=== PATIENT | male | born 1935 | race Caucasian/White ===

== ENCOUNTER 2017-10-29 10:58 | Inpatient (IN) | payer MEDICARE ==
[~2017-10-29] VITALS: Ht 177.8 cm; Wt 77.7 kg
[~2017-10-29 10:58] MED LIST: ASPI-1012 PO; CHOL100040 PO; CYAN10009 PO; FISH1CAP63 PO; GLUC-172 PO; KRIL1CAP19 PO; MULT-1192 PO; SAW450CA7 PO; TERA5 PO; UBID100C10 PO; VIT1CAPS21 PO
[2017-10-29] MEDS ORDERED: ONDANSETRON HCL 4 MG/2 ML VIAL ONE (11:33)
[2017-10-29] MEDS ORDERED: SODIUM CHLORIDE 0.9% 500ML 500 ML IV ONE (11:34)
[2017-10-29 11:41] LABS: BASOPHILS % (AUTO) 0.1 % (0.0-5.0); EOSINOPHILS % (AUTO) 0.3 % (0.0-8.0); HEMATOCRIT 35.5 % (42-54); MEAN CORPUSCULAR HEMOGLOBIN 32.4 pg (27.0-33.0); MEAN CORPUSCULAR HGB CONC 33.7 g/dL (32.0-36.0); MEAN CORPUSCULAR VOLUME 96.2 fL (79-99); MONOCYTES % (AUTO) 2.2 % (3.0-13.0); NEUTROPHILS % (AUTO) 90.1 % (40.0-77.0); PLATELET COUNT (AUTO) 128 K/uL (130-400); RED BLOOD CELL COUNT(AUTO) 3.69 MIL/uL (4.50-6.20); RED CELL DISTRIBUTION WIDTH 13.7 % (11.0-15.5)
[2017-10-29 11:49] LABS: CARBON DIOXIDE 30 mmol/L (21-32); CHLORIDE 104 mmol/L (101-111); CREATININE 1.6 mg/dL (0.5-1.5); GLOMERULAR FILTR. RATE CALC 44 mL/min (>60); GLUCOSE,RANDOM 188 mg/dL (70-105); POTASSIUM 5.1 mmol/L (3.5-5.1); SODIUM SERUM 142 mmol/L (136-145); UREA NITROGEN, BLOOD 55 mg/dL (7-18)
[2017-10-29 11:52] LABS: INR 1.07 (0.85-1.15); PROTHROMBIN TIME 11.2 SEC (9.6-11.6)
[2017-10-29] MEDS ORDERED: DILTIAZEM 125MG+100 ML NS 125 ML IV SCH (12:00)
[2017-10-29 12:03] LABS: ALANINE AMINOTRANSFERASE 24 U/L (12-78); ALBUMIN 3.1 g/dL (3.5-5.0); ASPARTATE AMINOTRANSFERASE 21 U/L (10-37); BILIRUBIN,TOTAL 0.8 mg/dL (0.2-1.0); CREATINE KINASE MB < 0.5 ng/mL (0.5-3.6); CREATINE KINASE, TOTAL 25 U/L (21-232); MYOGLOBIN 42 ng/mL (10-92); TOTAL PROTEIN, SERUM 5.9 g/dL (6.0-8.3)
[2017-10-29 12:13] LABS: B-TYPE NATRIURETIC PEPTIDE 142 pg/mL (0-100)
[2017-10-29] MEDS ORDERED: SODIUM CHLORIDE 0.9% 100 ML IV ONE (12:14)
[2017-10-29] MEDS ORDERED: DILTIAZEM HCL 125 MG/25 ML VIAL IV ONE (12:14)
[2017-10-29 12:18] LABS: LYMPHOCYTES % (AUTO) 7.3 % (21.0-51.0)
[2017-10-29 17:15] VITALS: BP 109/50
[2017-10-29] MEDS ORDERED: DILTIAZEM 125 MG IV SCH (18:00)
[2017-10-29] MEDS ORDERED: NS IV SCH (18:00)
[2017-10-29 20:32] VITALS: BP 120/66
[2017-10-30] VITALS: BP 135/73
[2017-10-30 04:19] VITALS: BP 135/77
[2017-10-30 07:46] VITALS: BP 140/68
[2017-10-30 11:19] VITALS: BP 137/73
[2018-03-08] MEDS ORDERED: TERA5CAP4 PO (14:48)
[2018-03-08] MEDS ORDERED: ASPI-1026 PO (14:48)
== END 2017-10-30 13:35 | disposition home or self-care (01) | DRG 310 ==
LOC: EDH 10:58 → EDHIP 12:25 → 2AH 16:39
PROVIDERS: ADMIT Family Medicine; ATTEND Family Medicine
DX: I48.2 Chronic atrial fibrillation (principal); I10 Essential (primary) hypertension; I25.10 Atherosclerotic heart disease of native coronary artery without angina pectoris; N40.0 Benign prostatic hyperplasia without lower urinary tract symptoms
CPT/HCPCS: 36415; 71045; 80053; 82550; 82553; 82948; 83874; 83880; 84484; 85025; 85610; 85730; 87040; 87804; 93005; 99291; J2405; J3490; J7040

== ENCOUNTER 2018-03-10 06:18 | Day surgery (SDC) | payer MEDICARE ==
[2018-03-08 14:43] VITALS: BP 157/65
[2018-03-08 14:47] LABS: BASOPHILS % (AUTO) 0.5 % (0.0-5.0); EOSINOPHILS % (AUTO) 2.6 % (0.0-8.0); HEMATOCRIT 39.1 % (42-54); LYMPHOCYTES % (AUTO) 18.9 % (21.0-51.0); MEAN CORPUSCULAR VOLUME 94.2 fL (79-99); MONOCYTES % (AUTO) 9.7 % (3.0-13.0); NEUTROPHILS % (AUTO) 68.3 % (40.0-77.0); PLATELET COUNT (AUTO) 97 K/uL (130-400); RED BLOOD CELL COUNT(AUTO) 4.15 MIL/uL (4.50-6.20); RED CELL DISTRIBUTION WIDTH 15.8 % (11.0-15.5); WHITE BLOOD COUNT (AUTO) 5.5 K/uL (4.8-10.8)
[2018-03-08 14:53] LABS: CREATININE 1.6 mg/dL (0.5-1.5); POTASSIUM 4.1 mmol/L (3.5-5.1)
[2018-03-08 14:55] LABS: APPEARANCE,URINE Clear (CLEAR); BILIRUBIN,URINE Negative (NEGATIVE); COLOR,URINE Yellow (YELLOW); GLUCOSE, URINE (UA) TRACE mg/dL (NEGATIVE); KETONES,URINE Negative (NEGATIVE); LEUKOCYTE ESTERASE ,URINE Negative (NEGATIVE); NITRATE,URINE Negative (NEGATIVE); OCCULT BLOOD,URINE Large (NEGATIVE); PROTEIN,URINE POS 1+ (NEGATIVE); UROBILINOGEN,URINE 0.2 mg/dL (0.2-1.0)
[2018-03-08 14:55] LABS: INR 0.98 (0.85-1.15); PROTHROMBIN TIME 10.3 SEC (9.6-11.6)
[2018-03-08 15:19] LABS: BACTERIA,URINE Rare /HPF (None Seen); WBC,URINE 0-1 /HPF (0-1)
[2018-03-08 15:20] LABS: MUCUS,URINE Few LPF (None Seen); RBC,URINE 26-50 /HPF (0-1)
[~2018-03-10] VITALS: Ht 177.8 cm; Wt 76.3 kg
[2018-03-10] VITALS (15 sets, daily range): BP systolic 128–156; BP diastolic 61–95
[~2018-03-10 06:18] MED LIST changes: -ASPI-1012 PO; +ASPI-1026 PO; -CHOL100040 PO; -CYAN10009 PO; -FISH1CAP63 PO; -GLUC-172 PO; -KRIL1CAP19 PO; -MULT-1192 PO; -SAW450CA7 PO; -TERA5 PO; +TERA5CAP4 PO; -UBID100C10 PO; -VIT1CAPS21 PO
[2018-03-10] MEDS ORDERED: LACTATED RINGERS 1000ML 1,000 ML IV ONE (07:35)
[2018-03-10] MEDS ORDERED: GLYCOPYRROLATE 0.2 MG/ML 5 ML VIAL ONE (07:51)
[2018-03-10] MEDS ORDERED: MIDAZOLAM HCL 1 MG/ML 2ML VIAL ONE (07:51)
[2018-03-10] MEDS ORDERED: PROPOFOL 10 MG/ML 20ML VIAL IV ONE (07:51)
[2018-03-10] MEDS ORDERED: DEXAMETHASONE SOD PHOSPHATE 10MG/ML 1ML VIAL ONE (07:51)
[2018-03-10] MEDS ORDERED: ONDANSETRON HCL 4 MG/2 ML VIAL ONE (07:51)
[2018-03-10] MEDS ORDERED: NEOSTIGMINE 5MG/5ML SYR IV ONE ×2 (07:51→09:31)
[2018-03-10] MEDS ORDERED: LIDOCAINE PF 2% 5ML ABBOJECT ONE (07:51)
[2018-03-10] MEDS ORDERED: FENTANYL CITRATE PF 50 MCG/1 ML 2ML VIAL ONE (07:52)
[2018-03-10] MEDS ORDERED: GENTAMICIN 80 MG/NS 100 ML PB 100 ML IV ONE (08:00)
[2018-03-10] MEDS ORDERED: CEFAZOLIN SODIUM 1 GM VIAL IVP ONE (08:00)
[2018-03-10] MEDS ORDERED: GENTAMICIN 80 MG/NS 100 ML PB 100 ML IV SCH (08:00)
== END 2018-03-10 11:43 | disposition home or self-care (01) ==
LOC: DAH 06:18
PROVIDERS: ATTEND Urology
DX: N20.0 Calculus of kidney (principal); I10 Essential (primary) hypertension; I48.91 Unspecified atrial fibrillation; K21.9 Gastro-esophageal reflux disease without esophagitis; Z86.010 Personal history of colon polyps; Z98.890 Other specified postprocedural states; Z98.49 Cataract extraction status, unspecified eye; Z82.3 Family history of stroke
CPT/HCPCS: 36415; 50590; 71045; 74018; 80048; 81001; 85025; 85610; 87088; 93005; A4218; J0690; J1100; J1580; J2001; J2250; J2405; J2704; J2710 ×2; J3010; J3490; J7120

== ENCOUNTER → 2018-03-15 | Outpatient (CLI) | payer MEDICARE | END | disposition home or self-care (01) | LOC: RAH 09:50 | PROVIDERS: ATTEND Urology | DX: N20.2 Calculus of kidney with calculus of ureter (principal) | CPT/HCPCS: 74018 ==

== ENCOUNTER → 2018-03-22 | Outpatient (CLI) | payer MEDICARE | END | disposition home or self-care (01) | LOC: RAH 10:19 | PROVIDERS: ATTEND Urology | DX: N20.0 Calculus of kidney (principal) | CPT/HCPCS: 74018 ==

== ENCOUNTER → 2018-04-08 | Outpatient (CLI) | payer MEDICARE | END | disposition home or self-care (01) | LOC: RAH 09:36 | PROVIDERS: ATTEND Urology | DX: Z09 Encounter for follow-up examination after completed treatment for conditions other than malignant neoplasm (principal); I10 Essential (primary) hypertension; I25.10 Atherosclerotic heart disease of native coronary artery without angina pectoris; K21.9 Gastro-esophageal reflux disease without esophagitis | CPT/HCPCS: 74018 ==

== ENCOUNTER 2018-12-16 16:42 | Inpatient (IN) | payer MEDICARE | END 2018-12-16 19:29 | disposition left against medical advice (07) | LOC: EDH 16:42 → EDHIP 18:40 ==

== ENCOUNTER 2023-01-07 05:50 | Day surgery (SDC) | payer MEDICARE ==
[2023-01-04 11:48] LABS: BASOPHILS % (AUTO) 0.7 % (0.0-5.0); EOSINOPHILS % (AUTO) 2.3 % (0.0-8.0); HEMATOCRIT 41.3 % (42-54); MEAN CORPUSCULAR HEMOGLOBIN 32.8 pg (27.0-33.0); MEAN CORPUSCULAR HGB CONC 32.2 g/dL (32.0-36.0); MEAN CORPUSCULAR VOLUME 101.7 fL (79-99); MONOCYTES % (AUTO) 9.7 % (3.0-13.0); NEUTROPHILS % (AUTO) 62.1 % (40.0-77.0); PLATELET COUNT (AUTO) 83 K/uL (130-400); RED BLOOD CELL COUNT(AUTO) 4.06 MIL/uL (4.50-6.20); RED CELL DISTRIBUTION WIDTH 13.2 % (11.0-15.5); WHITE BLOOD COUNT (AUTO) 5.6 K/uL (4.8-10.8)
[2023-01-04 11:52] VITALS: BP 128/69
[2023-01-04 11:58] LABS: CREATININE 1.6 mg/dL (0.5-1.5); INR 1.05 (0.85-1.15); POTASSIUM 4.2 mmol/L (3.5-5.1); PROTHROMBIN TIME 11.4 SEC (9.6-11.6)
[2023-01-04 11:59] LABS: PARTIAL THROMBOPLASTIN TIME 33.4 SEC (26.3-35.5)
[2023-01-04 11:59] LABS: APPEARANCE,URINE CLEAR (CLEAR); BILIRUBIN,URINE NEGATIVE (NEGATIVE); COLOR,URINE YELLOW (YELLOW); GLUCOSE, URINE (UA) NEGATIVE (NEGATIVE); KETONES,URINE NEGATIVE (NEGATIVE); LEUKOCYTE ESTERASE ,URINE NEGATIVE Leu/uL (NEGATIVE); NITRATE,URINE NEGATIVE (NEGATIVE); OCCULT BLOOD,URINE NEGATIVE (NEGATIVE); PROTEIN,URINE 20 mg/dL (NEGATIVE); UROBILINOGEN,URINE 0.2 mg/dL (0.2-1.0)
[2023-01-04 12:04] LABS: MUCUS,URINE RARE LPF (None Seen); WBC,URINE 0-1 /HPF (0-1)
[2023-01-07] VITALS (17 sets, daily range): BP systolic 126–146; BP diastolic 67–80
[~2023-01-07] VITALS: Ht 177.8 cm; Wt 83.6 kg
[~2023-01-07 05:50] MED LIST changes: +APIX2.5T PO; -ASPI-1026 PO; +ATOR10 PO; +CARV6.25 PO; +DONE10TA43 PO; +FOLIC ACID PO; +LOSA50TA64 PO; +OMEP20TA20 PO; +SACU1TAB PO; +TERA10CA4 PO; -TERA5CAP4 PO
[2023-01-07] MEDS: CEFTRIAXONE 1G VIAL IVPB SCH ×2 (06:00→08:30)
[2023-01-07] MEDS ORDERED: LACTATED RINGERS 1000ML 1,000 ML IV ONE (06:46)
[2023-01-07] MEDS ORDERED: FAMOTIDINE 20MG VIAL IV ONE (07:37)
[2023-01-07] MEDS ORDERED: GLYCOPYRROLATE 1 MG/5 ML SYRINGE ONE (07:38)
[2023-01-07] MEDS ORDERED: LIDOCAINE PF 100MG/5ML (2%) SYRINGE 5ML ONE (07:38)
[2023-01-07] MEDS ORDERED: ROCURONIUM 10MG/1ML SYR 10 MG/ML ML ONE (07:38)
[2023-01-07] MEDS ORDERED: FENTANYL CITRATE PF 50 MCG/1 ML 2ML VIAL ONE ×2 (07:39→10:27)
[2023-01-07] MEDS ORDERED: PROPOFOL 10 MG/ML 20ML VIAL IV ONE (07:39)
[2023-01-07 08:14] LABS: HEMATOCRIT 39.1 % (42-54); MEAN CORPUSCULAR HEMOGLOBIN 32.6 pg (27.0-33.0); MEAN CORPUSCULAR HGB CONC 32.5 g/dL (32.0-36.0); MEAN CORPUSCULAR VOLUME 100.5 fL (79-99); PLATELET COUNT (AUTO) 77 K/uL (130-400); RED BLOOD CELL COUNT(AUTO) 3.89 MIL/uL (4.50-6.20); RED CELL DISTRIBUTION WIDTH 13.4 % (11.0-15.5)
[2023-01-07 08:44] LABS: EOSINOPHILS % (MANUAL) 4 % (1-6); LYMPHOCYTES % (MANUAL) 27 % (22-44); MAN.DIFF COMMENT-IMPRESSION MANUAL DIFFERENTIAL; MONOCYTES % (MANUAL) 10 % (2-9); PLATELET MORPHOLOGY COMMENT DECREASED; REACTIVE LYMPHOCYTES 4 % (0-0); SEGMENTED NEUTROPHILS % 55 % (40-70)
[2023-01-07] MEDS ORDERED: ONDANSETRON 4MG INJ ONE (08:51)
[2023-01-07] MEDS ORDERED: SUGAMMADEX SODIUM 200 MG/2 ML VIAL IV ONE (09:34)
== END 2023-01-07 11:45 | disposition home or self-care (01) ==
LOC: DAH 05:50
PROVIDERS: ATTEND Urology
DX: N40.0 Benign prostatic hyperplasia without lower urinary tract symptoms (principal); Z20.822 Contact with and (suspected) exposure to COVID-19; N21.0 Calculus in bladder; I12.9 Hypertensive chronic kidney disease with stage 1 through stage 4 chronic kidney disease, or unspecified chronic kidney disease; N18.9 Chronic kidney disease, unspecified; E78.5 Hyperlipidemia, unspecified; K21.9 Gastro-esophageal reflux disease without esophagitis; Z90.49 Acquired absence of other specified parts of digestive tract; Z98.890 Other specified postprocedural states; Z79.01 Long term (current) use of anticoagulants; Z79.899 Other long term (current) drug therapy
CPT/HCPCS: 80048; 85025 ×2; 85610; 85730; 87088; 87426; 81001; 36415 ×2; 93005; 52648; 52318; 82360; A6260; A4663; J7030; C1758; A4354; J7120; J3490 ×2; J3010 ×2; J2001; J0696; J2704; J2405; A4358; A4930; A4215; A4223; A4222; A4221; A4600